=== PATIENT | female | born 1980 | race Caucasian/White ===

== ENCOUNTER 2024-10-20 20:59 | Emergency (ER) | payer BC ==
[~2024-10-20] VITALS: Ht 165.1 cm; Wt 82.0 kg
[2024-10-20 21:14] VITALS: O2SAT 97
[2024-10-20] MEDS: SODIUM CHLORIDE 0.9% 1,000 ML IV ONE (23:30)
[2024-10-20] MEDS: ONDANSETRON HCL 4MG/2ML INJ IV ONE (23:30)
[2024-10-20 23:50] LABS: BASOPHILS % 0.5 % (0.0-2.0); EOSINOPHILS % 0.9 % (0.0-5.0); HEMATOCRIT. 40.2 % (36.0-48.0); HEMOGLOBIN. 13.2 g/dL (12.0-16.0); LYMPHOCYTES % 23.0 % (20.0-50.0); MEAN PLATELET VOLUME 8.8 fl (7.4-10.4); MONOCYTES % 6.5 % (2.0-8.0); NEUTROPHILS % 69.1 % (40.0-76.0); PLATELET 183 x1000/uL (130-400); RED BLOOD CELL COUNT 4.19 mill/uL (4.2-5.4); RED CELL DISTRIBUTION WIDTH 13.5 % (11.6-14.6)
[2024-10-21 00:05] LABS: CREATININE 0.6 mg/dL (0.6-1.0); UREA NITROGEN BLOOD 6 mg/dL (9-23)
[2024-10-21] MEDS ORDERED: PANT40SU MT (01:05)
[2024-10-21] MEDS ORDERED: ONDA4TAB50 MT (01:05)
[2024-10-21 02:20] VITALS: BP 104/69; PULSE 92; RESP 16; TEMP 36.6; O2SAT 98
== END 2024-10-21 02:25 | disposition home or self-care (01) ==
LOC: ER 20:59
DX: K29.70 Gastritis, unspecified, without bleeding (principal); F10.129 Alcohol abuse with intoxication, unspecified; Z79.899 Other long term (current) drug therapy; Z90.49 Acquired absence of other specified parts of digestive tract; Y90.9 Presence of alcohol in blood, level not specified
CPT/HCPCS: 80048; 85025; 36415; 96361; 96374; 99283; J2405; J7030; Z7610 ×3